=== PATIENT | female | born 1965 | race Caucasian/White ===

== ENCOUNTER 2019-02-14 15:40 | Emergency (ER) | payer SELFPAY ==
--- NOTE | 2019-03-06 10:09 | Diagnostic Imaging Report ---
MAYTE POWELL ED [facility] [id number] [facility].[address] [id number] Report Submission Date: Feb 14, 2019 6:24:53 PM CDT Patient Study Name: PALAK ROBBINS Date: Feb 14, 2019 6:06:28 PM CDT Modality Type: DX Gender: F Description: KNEE 3 VIEWS : 67 Institution: [facility] Physician: MAYTE POWELL ED KNEE 3 VIEWS History: RT KNEE, PAIN IN RT KNEE X5 DAYS. PT STATES SHE FELT A POP WHEN WALKING Findings: The osseous structures are intact without acute fracture. The joint space and alignment are normal. There is no soft tissue swelling. No knee joint effusion. Impression: 1. No acute osseous abnormality. Electronically signed on Feb 14, 2019 6:24:53 PM CDT by: Donald Nj RIGHT KNEE 3 VIEWS History: RT KNEE, PAIN IN RT KNEE X5 DAYS. PT STATES SHE FELT A POP WHEN WALKING Findings: The osseous structures are intact without acute fracture. The joint space and alignment are normal. There is no soft tissue swelling. No knee joint effusion. Impression: 1. No acute osseous abnormality. Addendum electronically signed by Donald Nj on February 14, 2019 6:25:14 PM CDT [facility]
== END 2019-02-14 19:00 | disposition home or self-care (01) ==
LOC: ED 15:40
DX: M25.561 Pain in right knee (principal)
CPT/HCPCS: 73562; 99283; 99284